=== PATIENT | male | born 1980 | race Hispanic/Latino ===

== ENCOUNTER 2021-12-08 12:17 | Emergency (ER) | payer SELFPAY ==
[~2021-12-08] VITALS: Ht 170.2 cm; Wt 102.0 kg
[2021-12-08] VITALS (15 sets, daily range): BP systolic 102–137; BP diastolic 65–86
[2021-12-08 13:15] LABS: HEMATOCRIT 36.2 % (39.0-50.0); MEAN CELL VOLUME 98.1 fL CALC (80.0-100.0); MEAN CORPUSCULAR HGB 32.5 pG CALC (26.0-32.0); MEAN CORPUSCULAR HGB CONC 33.1 g/dL CAL (32.0-36.0); NEUT# 5.91 thou/uL (1.82-7.42); RED BLOOD COUNT 3.69 mill/uL (4.70-6.10); RED CELL DISTRI WIDTH 22.1 % (11.5-15.5)
[2021-12-08 13:30] LABS: INTERNATIONAL NORMALIZED RATIO 1.4 RATIO (0.7-1.3); PROTHROMBIN TIME 14.1 SECONDS (9.0-12.5)
[2021-12-08 13:31] LABS: ALBUMIN 2.8 g/dL (3.2-5.0); ALKALINE PHOSPHATASE 242 u/l (38-126); AMYLASE 73 u/l (30-110); ANION GAP 10 (6-22 (CALC)); BUN 16 mg/dL (9-20); BUN/CREATININE RATIO 20 (12-20 (CALC)); CARBON DIOXIDE 31 mmol/l (22-30); CHLORIDE 98 mmol/l (95-108); CREATININE 0.8 mg/dL (0.7-1.3); GFR > 60 ML/MIN (>=60 (CALC)); GFR FOR AFR.AMER. > 60 ML/MIN (>=60 (CALC)); LIPASE 208 u/l (23-300); SGOT/AST 191 u/l (17-59); SODIUM 136 mmol/l (137-146); TOTAL PROTEIN 7.3 g/dL (6.3-8.2)
[2021-12-08 13:36] LABS: BILIRUBIN, TOTAL 17.1 mg/dL (0.0-1.4)
[2021-12-08] MEDS ORDERED: ALDACTONE25 MG PO (16:30)
[2021-12-08] MEDS ORDERED: LASIX 20 MG TAB20 MG PO (16:30)
== END 2021-12-08 16:57 | disposition left against medical advice (07) | DRG 433 ==
LOC: ED 12:17
PROVIDERS: Nurse Practitioner
DX: K74.60 Unspecified cirrhosis of liver (principal); R18.8 Other ascites; I50.9 Heart failure, unspecified; E87.6 Hypokalemia; Z91.19 Patient's noncompliance with other medical treatment and regimen
CPT/HCPCS: Q9967